=== PATIENT | male | born 1950 | race Caucasian/White ===

== ENCOUNTER 2020-09-20 06:27 | Outpatient (CLI) | payer MEDICARE, SELFPAY ==
--- NOTE | 2020-09-20 | US_ITS ---
WS: [id number] RIGHT UPPER QUADRANT ULTRASOUND HISTORY: Elevated liver enzymes. Abdominal pain. COMPARISON: None available. Liver: 14.5 cm in length. Normal size liver. Mild coarsened echotexture and changes of hepatic steato sis. No mass or bile duct dilatation. Gallbladder: Normally distended gallbladder with no stones or wall thickening. CBD: 0.3 cm Pancreas: Tail is not visualized. The remaining pancreas is negative. Right kidney: 10.2 cm in length. Normal size. Cortical cyst with a maximum diameter of 2 mm in the mi d kidney. Aorta and IVC: Unremarkable abdominal aorta and IVC. No ascites. US/US gall bladder 09101 IMPRESSION: 1. Normal gallbladder. 2. Moderate hepatic steatosis. No bile duct dilatation.
== END 2020-09-20 06:28 | disposition home or self-care (01) ==
LOC: US 06:28
PROVIDERS: PCP Internal Medicine; Visit Provider Internal Medicine
DX: R74.8 Abnormal levels of other serum enzymes (principal); R10.9 Unspecified abdominal pain; K76.0 Fatty (change of) liver, not elsewhere classified
CPT/HCPCS: 76705

== ENCOUNTER 2021-06-21 10:20 | Outpatient (CLI) | payer MEDICARE, SELFPAY ==
[2021-06-21 12:44] LABS: Basophils # 0.1 10^3/uL (0.0-0.1); Basophils % 1.2 %; Eosinophils # 0.3 10^3/uL (0.0-0.8); Eosinophils % 4.5 %; Hematocrit 47.5 % (42.0-52.0); Hemoglobin 15.9 g/dL (11.7-16.6); Lymphocytes # 1.6 10^3/uL (0.8-4.8); Lymphocytes % 25.3 %; Mean Corpuscular HGB Conc 33.5 g/dL (30.0-36.0); Mean Corpuscular Hemoglobin 29.4 pg (28.0-34.0); Mean Corpuscular Volume 87.8 fl (80-94); Mean Platelet Volume 12.4 fL (7.4-10.4); Monocytes # 0.6 10^3/uL (0.2-0.9); Monocytes % 9.9 %; Neutrophils % 58.9 %; Nucleated Red Blood Cells % 0 %; Platelet Count 142 10^3/cmm (130-400); Red Blood Count 5.41 10^6/uL (4.1-5.3); Red Cell Distribution Width 12.6 % (12.1-15.1); White Blood Count 6.5 10^3/uL (4.0-10.0)
--- NOTE | 2021-06-21 13:22 | ONC CON_ITS ---
Dr. Crouch New Patient Note Patient: Rohith Enriquez Unit #: [id number]: 1950 Dicatated By: Braeden Crouch M.D.Date of Visit: Jun 21, 2021 Onc MED New Patient/Consult Referring Physician: Dr. OLIVER WEIR M.D. Chief Complaint: Thrombocytopenia. History of Present Illness: This is a 71-year-old man with mild thrombocytopenia. This patient has hypertension, hyperlipidemia, and known coronary artery disease. He underwent quadruple bypass in 2007 following a myocardial infarction. He had subsequent coronary angioplasty/stent placement in 2013. On his follow-up visit with Dr. Weir in December 2020 it was noted that his liver enzymes were mildly elevated with SGOT 62/40 IU/L and SGPT 110/44 IU/L. His CBC at that time showed borderline low platelet count of 134,000. His repeat laboratory studies on 06/05/2021 again showed mildly elevated liver enzymes with SGOT 63/40 IU/L and SGPT 102/44 IU/L. The bilirubin and alkaline phosphatase levels were normal. CBC showed normal hemoglobin at 15.6 g with hematocrit 46.9%. The red cell indices were normal. The white blood cell count was 5600 with the differential showing 59% neutrophils, 25% lymphocytes, 10% monocytes, 5% eosinophils, and 1% basophils. The platelet count was mildly decreased at 97,000. The records from Dr. Weir's office indicate that he had a negative hepatitis panel. A gallbladder ultrasound on 09/20/2020 showed moderate hepatic steatosis. He says he has been feeling all right. He has good energy and activity tolerance. ECOG score is 0. His appetite is good, though his weight recently may have been down a little. He does not have fever or night sweats. He has not had sore mouth or throat. He has no shortness of breath, cough, or chest pain. He has no GI or complaints. He has no significant joint or bone pain. He does not complain of headache or dizziness. He has had no numbness/paresthesia or other focal neurologic symptoms. He says he does bruise easily, but he is taking both aspirin and Plavix. He has had no other bleeding manifestations. Past Medical History: His medical history includes coronary artery disease, hyperlipidemia, hypertension, and nonalcoholic steatohepatitis. Past Surgical History: His surgical/procedural history includes coronary angioplasty/stent placement in 2013 and coronary artery bypass surgery in 2007. He had a previous appendectomy. Medications: Ascorbic Acid 1 Tablet (of 500 mg) Oral daily, Aspirin Adult 1 Tablet (of 325 mg) Oral daily, Cholecalciferol 1 Tablet (of 125mcg ) Oral daily, Clopidogrel Bisulfate 1 Tablet (of 75 mg) Oral daily, Complete [place] 2 Capsule Oral daily, Metoprolol Succinate ER 1 Tablet (of 50 mg) Tablet SR 24 HR Oral daily, Quinapril HCl 1 Tablet (of 5 mg) Oral daily, Resveratrol 1 Tablet (of 250 mg) Capsule Oral daily, Rosuvastatin Calcium 1 Tablet (of 20 mg) Oral daily Allergies: No Known Allergies. Social History: Mr. Enriquez is . He had previously worked in the [employer] and he was then employed with [employer]. He has history of smoking 1 pack of cigarettes daily. He quit smoking in 2007. He does not drink alcohol. Family History: Father with heart disease at age 63. Mother with complications of diabetes. He had a total of 7 brothers and 2 sisters, but he does not know much about them. He had 1 son, who of drowning. Review Of Symptoms: Constitutional - He has good energy and activity tolerance. His appetite also has been good. He may have had a little weight loss recently. He does not have fever or night sweats. ECOG score is 0, Eyes - No change in vision, ENMT - No hearing loss or tinnitus. No sinus congestion/drainage. No mouth sores. No sore throat or difficulty swallowing, Hematologic/Lymphatic - He does report easy bruising. He has no other bleeding manifestations, Respiratory - No shortness of breath. No cough. No pleuritic pain or hemoptysis, Cardiovascular - No angina pain. No palpitations, Gastrointestinal - No nausea or vomiting. No heartburn or acid reflux. No diarrhea or constipation. No blood in the stool or black stools, Genitourinary (M) - No dysuria or hematuria. No urinary frequency. No urgency or incontinence, Musculoskeletal - No joint or bone pain, Integumentary - No skin rash or other skin changes, Neurologic - No headache or dizziness. No numbness or tingling. No other focal neurologic symptoms, Psychiatric - No anxiety or depression. No insomnia. Vital Signs: Performed on Jun 21, 2021 11:29: 0, 0, 27.22, 1.69 sq.m, 62 in, 97 %, 52 /min (LOW), 18 /min, 149/68 mm(hg) (HIGH), 96.9 F (LOW), and 148.8 lbs (HIGH). Physical Examination: Constitutional - He appears to be in good general health, Eyes - Sclerae nonicteric. Conjunctivae clear, ENMT - No lesions noted in the oral cavity, Neck - No mass or thyromegaly, Hematologic/Lymphatic - No cervical, clavicular, or axillary adenopathy, Respiratory - Lungs are clear with good air movement bilaterally, Cardiovascular - Heart rhythm is regular. There is no murmur, gallop, or rub noted, Abdomen - Sof. Liver is not enlarged. Spleen is not palpable. There is no abdominal mass or ascites noted and there is no inguinal adenopathy, Back/Spine - No spine or CVA tenderness noted, Extremities - No edema. Posterior tibial pulses are palpable bilaterally, Integumentary - No rashes. No suspicious skin lesions noted, Neurologic - No focal neurologic deficits noted. Problem List: 1. Mild thrombocytopenia. Etiology is uncertain. 2. Nonalcoholic steatohepatitis. 3. Hypertension. 4. Hyperlipidemia. 5. Coronary artery disease. Problems Addressed with this Encounter and Plan: Patient with mild thrombocytopenia. This developed in association with nonalcoholic steatohepatitis, and it may just be due to the underlying liver disease, though by clinical exam he did not have an overtly enlarged spleen. Other potential causes would be a low-grade autoimmune thrombocytopenia or myelodysplastic syndrome. It appears unlikely to be medication related. B12 deficiency needs to be excluded, and I also need to rule out platelet clumping. At this point he will have additional laboratory studies to include CBC, comprehensive metabolic profile, LDH level, sed rate, and B12 level. I will review the blood smear. He will have further evaluation as indicated. However, if his platelet count remains just mildly decreased and his other blood counts are normal, I will most likely just be following him with expectant management. Signed By: Braeden Crouch M.D. <<Signature on File>>
[2021-06-21 13:44] LABS: LAB Peripheral Smear Sent for Review
[2021-06-21 13:55] LABS: Erythrocyte Sedimentation Rate 3 mm/hr (0-10)
[2021-06-21 17:38] LABS: Alanine Aminotransferase 92 U/L (0-41); Albumin Level 4.8 g/dL (3.5-5.2); Alkaline Phosphatase 68 IU/L (40-130); Anion Gap 19.7 (5-19); Aspartate Amino Transferase 54 U/L (0-40); Blood Urea Nitrogen 15 mg/dL (8-23); Calcium 9.5 mg/dL (8.5-10.5); Carbon Dioxide 21 mmol/L (22-29); Chloride 105 mmol/L (98-107); Globulin 2.2 g/dL (1.3-4.6); Glomerular Filtration Rate 74.1 mL/min (90-130); Glucose 88 mg/dL (65-115); Lactate Dehydrogenase 270 U/L (135-225); Osmolality Calculated 292 mOsm/kg (285-295); Potassium 4.7 mmol/L (3.5-5.1); Sodium 141 mmol/L (136-145); Total Bilirubin 0.5 mg/dL (0.15-1.2)
[2021-06-21 17:49] LABS: Vitamin B12 293 pg/mL (232-1245)
== END 2021-06-21 10:21 | disposition home or self-care (01) ==
PROVIDERS: PCP Internal Medicine; Visit Provider Internal Medicine Medical Oncology
DX: D69.6 Thrombocytopenia, unspecified (principal); K75.81 Nonalcoholic steatohepatitis (NASH); I10 Essential (primary) hypertension; E78.5 Hyperlipidemia, unspecified; I25.10 Atherosclerotic heart disease of native coronary artery without angina pectoris; Z79.899 Other long term (current) drug therapy; Z79.82 Long term (current) use of aspirin
CPT/HCPCS: 36415; 80053; 82607; 83615; 85025; 85651; 99204

== ENCOUNTER 2021-12-28 08:47 | Outpatient (CLI) | payer MEDICARE, SELFPAY ==
[2021-12-28 09:23] LABS: Basophils # 0.1 10^3/uL (0.0-0.1); Basophils % 1.1 %; Eosinophils # 0.3 10^3/uL (0.0-0.8); Eosinophils % 3.6 %; Hematocrit 43.7 % (42.0-52.0); Hemoglobin 14.8 g/dL (11.7-16.6); Lymphocytes # 1.6 10^3/uL (0.8-4.8); Lymphocytes % 21.1 %; Mean Corpuscular HGB Conc 33.9 g/dL (30.0-36.0); Mean Corpuscular Hemoglobin 29.1 pg (28.0-34.0); Mean Corpuscular Volume 85.9 fl (80-94); Mean Platelet Volume 11.7 fL (7.4-10.4); Monocytes # 0.8 10^3/uL (0.2-0.9); Monocytes % 10.2 %; Neutrophils # 4.84 10^3/uL (1.8-7.7); Neutrophils % 63.9 %; Nucleated Red Blood Cells % 0 %; Platelet Count 164 10^3/cmm (130-400); Red Blood Count 5.09 10^6/uL (4.1-5.3); White Blood Count 7.6 10^3/uL (4.0-10.0)
[2021-12-28 09:40] LABS: Alanine Aminotransferase 50 U/L (0-41); Albumin Level 4.7 g/dL (3.5-5.2); Alkaline Phosphatase 73 IU/L (40-130); Anion Gap 14.2 (5-19); Aspartate Amino Transferase 35 U/L (0-40); Blood Urea Nitrogen 13 mg/dL (8-23); Calcium 9.7 mg/dL (8.5-10.5); Carbon Dioxide 23 mmol/L (22-29); Chloride 104 mmol/L (98-107); Erythrocyte Sedimentation Rate 9 mm/hr (0-10); Globulin 2.5 g/dL (1.3-4.6); Glomerular Filtration Rate 83.7 mL/min (90-130); Glucose 98 mg/dL (65-115); Lactate Dehydrogenase 220 U/L (135-225); Osmolality Calculated 284 mOsm/kg (285-295); Potassium 4.2 mmol/L (3.5-5.1); Sodium 137 mmol/L (136-145); Total Bilirubin 0.4 mg/dL (0.15-1.2); Total Protein 7.2 g/dL (6.6-8.7)
== END 2021-12-28 08:48 | disposition home or self-care (01) ==
PROVIDERS: PCP Internal Medicine; Visit Provider Internal Medicine Medical Oncology
DX: D69.6 Thrombocytopenia, unspecified (principal); K75.81 Nonalcoholic steatohepatitis (NASH); I10 Essential (primary) hypertension; E78.5 Hyperlipidemia, unspecified; I25.10 Atherosclerotic heart disease of native coronary artery without angina pectoris; Z79.899 Other long term (current) drug therapy
CPT/HCPCS: 36415; 80053; 83615; 85025; 85651

== ENCOUNTER 2021-12-31 12:12 | Outpatient (CLI) | payer MEDICARE, SELFPAY ==
--- NOTE | 2021-12-31 19:58 | ONC FU_ITS ---
Dr. Crouch Patient Follow-Up Note Patient: Rohith Enriquez Unit #: [id number]: 1950 Dicatated By: Braeden Crouch M.D.Date of Visit:Dec 31, 2021 Onc Med Follow-up/Prog Note Chief Complaint: Thrombocytopenia. History of Present Illness: This is a 71-year-old man with mild thrombocytopenia. On a routine follow-up visit with Dr. Talamantes in December 2020 it was noted that his liver enzymes had become mildly elevated with SGOT 62/40 IU/L and SGPT 110/44 IU/L. His CBC at that time showed borderline low platelet count of 134,000. His repeat laboratory studies on 06/05/2021 again showed mildly elevated liver enzymes with SGOT 63/40 IU/L and SGPT 102/44 IU/L. The bilirubin and alkaline phosphatase levels were normal. CBC showed normal hemoglobin at 15.6 g with hematocrit 46.9%. The red cell indices were normal. The white blood cell count was 5600 with the differential showing 59% neutrophils, 25% lymphocytes, 10% monocytes, 5% eosinophils, and 1% basophils. The platelet count was mildly decreased at 97,000. I had seen him initially on 06/21/2021. His records from Dr. Talamantes's office indicated that he had a negative hepatitis panel. A previous gallbladder ultrasound on 09/20/2020 had shown moderate hepatic steatosis. His laboratory studies on 06/21/2021 included CBC showing hemoglobin 15.9 g with hematocrit 47.5%. Red cell indices were normal. The white blood cell count was 6500. The platelet count was just borderline low at 142,000. Sed rate was normal at 3 mm/h. His comprehensive metabolic profile showed elevated SGOT at 54/40 U/L with SGPT elevated at 92/41 U/L. Bilirubin and alkaline phosphatase were normal. The LDH was slightly elevated at 270/225 U/L. His vitamin B12 level was in the low normal range at 293 pg/mL. With those findings, I had just recommended expectant management. His other medical illnesses include hypertension, hyperlipidemia, and known coronary artery disease. He underwent quadruple bypass in 2007 following a myocardial infarction. He had subsequent coronary angioplasty/stent placement in 2013. He has a history of smoking 1 pack of cigarettes daily, but he quit smoking in 2007. He does not drink alcohol. He is seen for a follow-up visit. He has been feeling good generally. He has no significant complaints. He has good energy and normal activity. ECOG score is 0. Appetite also is good. He has no fever or night sweats. He has not had sore mouth or throat. He does not complain of cough, and he has not been having shortness of breath or chest pain. He has no GI or complaints. He has no significant joint or bone pain. He does not complain of headache or dizziness, and he has no focal neurologic symptoms. Medications: Ascorbic Acid 1 Tablet (of 500 mg) Oral daily, Aspirin Adult 1 Tablet (of 325 mg) Oral daily, Cholecalciferol 1 Tablet (of 125mcg ) Oral daily, Clopidogrel Bisulfate 1 Tablet (of 75 mg) Oral daily, Complete [place] 2 Capsule Oral daily, Metoprolol Succinate ER 1 Tablet (of 50 mg) Tablet SR 24 HR Oral daily, Quinapril HCl 1 Tablet (of 5 mg) Oral daily, Resveratrol 1 Tablet (of 250 mg) Capsule Oral daily, Rosuvastatin Calcium 1 Tablet (of 20 mg) Oral daily Allergies: No Known Allergies. Vital Signs: Performed on Dec 31, 2021 12:30 Height - 62.00 in Weight - 150.6 lbs (HIGH) BSA - 1.69 sq.m BMI - 27.55 Temperature - 97.1 F (LOW) Pulse - 70 /min Respiration - 17 /min BP - 153/68 mm(hg) (HIGH) O2 Sat - 96 % Pain - 0 Fatigue - 0 Physical Examination: Constitutional - He looks good generally, Eyes - Sclerae nonicteric. Conjunctivae clear, ENMT - No lesions noted in the oral cavity, Hematologic/Lymphatic - No cervical, clavicular, or axillary adenopathy, Respiratory - Lungs are clear with good air movement bilaterally, Cardiovascular - Heart rhythm is regular. There is no murmur, gallop, or rub noted, Abdomen - Soft. Liver and spleen are not enlarged. There is no abdominal mass or ascites noted and there is no inguinal adenopathy, Extremities - No edema, Neurologic - No focal neurologic deficits noted. Lab/Imaging: CBC shows hemoglobin 14.8 g, white blood cell count 7600, and platelet count 164,000. Comprehensive metabolic profile shows normal renal function with BUN 13 and creatinine 0.9 mg/dL. The SGPT is slightly elevated at 50/41 U/L with SGOT normal at 35 U/L. The bilirubin and alkaline phosphatase also were normal. LDH is normal at 220 U/L. Problem List: 1. Mild thrombocytopenia. Etiology is uncertain. 2. Nonalcoholic steatohepatitis. 3. Hypertension. 4. Hyperlipidemia. 5. Coronary artery disease. Problems Addressed with this Encounter and Plan: Patient with mild thrombocytopenia. It occurred in association with mildly transaminitis. A previous gallbladder ultrasound had shown steatohepatitis, which was the presumed cause for the transaminitis. That was, however, never determined with certainty, nor was the cause of the thrombocytopenia. During follow-up there has been improvement in the liver enzymes, with the SGOT now normal and with the SGPT just slightly elevated, and the platelet count is now back up in normal range. In retrospect, it may have just been a viral syndrome or some other acute process. In any case, does appear to be resolving, and he is recommended to just continue his regular follow-up with Dr. Talamantes. I will see him again only as needed. Signed By: Braeden Crouch M.D. <<Signature on File>>
== END 2021-12-31 12:13 | disposition home or self-care (01) ==
LOC: ONCMED 12:15
PROVIDERS: PCP Internal Medicine; Visit Provider Internal Medicine Medical Oncology
DX: D69.6 Thrombocytopenia, unspecified (principal); K75.81 Nonalcoholic steatohepatitis (NASH); I10 Essential (primary) hypertension; E78.5 Hyperlipidemia, unspecified; I25.10 Atherosclerotic heart disease of native coronary artery without angina pectoris; Z79.899 Other long term (current) drug therapy
CPT/HCPCS: 99214